=== PATIENT | male | born 1985 | race Caucasian/White ===

== ENCOUNTER → 2020-01-07 10:07 | Outpatient (CLI) | payer BC, SELFPAY ==
[2020-01-07 12:49] LABS: T3 Total - Triiodothyronine 0.98 ng/mL (0.6-1.81)
[2020-01-07 12:59] LABS: T4 Free Direct 1.04 ng/dL (0.76-1.46)
[2020-01-08 12:01] LABS: Thyroid Peroxidase AB < 9 IU/mL (0-34)
== END ==
PROVIDERS: Referring Provider Physician Assistant Medical; Visit Provider Physician Assistant Medical
DX: L80 Vitiligo (principal)
CPT/HCPCS: 36415; 84439; 84443; 84480; 86376

== ENCOUNTER → 2021-06-21 08:50 | Outpatient (CLI) | payer BC, SELFPAY ==
[2021-06-21 10:53] LABS: T3 Total - Triiodothyronine 0.97 ng/mL (0.6-1.81)
[2021-06-21 10:59] LABS: T4 Free Direct 0.84 ng/dL (0.76-1.46); Thyroid Stim Hormone (TSH) 1.03 uIU/mL (0.358-3.74)
[2021-06-22 10:09] LABS: Thyroid Peroxidase AB < 8 IU/mL (0-34)
== END ==
PROVIDERS: Referring Provider Physician Assistant; Visit Provider Physician Assistant
DX: L80 Vitiligo (principal)
CPT/HCPCS: 36415; 84439; 84443; 84480; 86376